=== PATIENT | male | born 1970 | race Caucasian/White ===

== ENCOUNTER 2018-10-24 17:25 | Emergency (ER) | payer OTHER ==
[2018-10-24] MEDS ORDERED: IBUPROFEN 400 MG TABLET (FP) PO ONE (18:08)
--- NOTE | 2018-10-24 18:08 | PDOC ---
Rapid Medical Evaluation Medical Evaluation: I have performed a brief in-person evaluation of this patient. The patient presents with a chief complaint of: R heel pain since yesterday; states he was pushing a garbage can and fell Pertinent physical exam findings: +TTP along R heel, no deformity, no obvious possible FB noted I have ordered the following: R foot xray, motrin The patient will proceed to the ED for further evaluation. 10/24/18 18:05
[2018-10-24] MEDS ORDERED: MAG HYDROX/AL HYDROX/SIMETH 30 ML UNIT-DOSE CUP PO ONE (18:10)
[2018-10-24] MEDS ORDERED: IBUPROFEN 600 MG TABLET (FP) PO ONE (18:11)
[2018-10-24] MEDS ORDERED: MAG HYDROX/AL HYDROX/SIMETH 30 ML UNIT-DOSE CUP ONE (18:29)
[2018-10-24 18:36] VITALS: BP 123/83; PULSE 81; TEMP 98.1; BMI 25.8
--- NOTE | 2018-10-24 19:02 | PDOC ---
History of Present Illness - General Chief Complaint: Pain Stated Complaint: RT FOOT PAIN Time Seen by Provider: 10/24/18 18:05 - History of Present Illness Initial Comments: 10/24/18 18:59 48-year-old male without comorbidities, he does get belly pain with anti- inflammatories, presents for evaluation of right heel pain times one day. No systemic symptoms. Past History - Past Medical History Allergies/Adverse Reactions: Allergies Allergy/AdvReac Type Severity Reaction Status Date / Time No Known Allergies Allergy Verified 10/24/18 18:14 Home Medications: Ambulatory Orders Ibuprofen 600 mg PO ONCE 10/24/18 COPD: No - Suicide/Smoking/Psychosocial Hx Smoking History: Never smoked Review of Systems - Review of Systems Constitutional: No: Fever Musculoskeletal: Yes: See HPI *Physical Exam - Vital Signs Last Vital Signs Temp Pulse Resp BP Pulse Ox 98.1 F 81 16 123/83 100 10/24/18 18:06 10/24/18 18:06 10/24/18 18:06 10/24/18 18:06 10/24/18 18:06 - Physical Exam Comments: 10/24/18 19:00 Right foot and ankle skin color and temperature are normal range of motion is full of the ankle without discomfort. No tenderness about the ankle reveal a lateral malleolus base of the fifth metatarsal or navicular. There is exquisite tenderness over the medial tubercle of the calcaneus and along the plantar aspect of the foot. No gross sensorimotor deficits. He is neurovascularly intact. Moderate Sedation - Procedure Monitoring Vital Signs: Procedure Monitoring Vital Signs Temperature 98.1 F 10/24/18 18:06 Pulse Rate 81 10/24/18 18:06 Respiratory Rate 16 10/24/18 18:06 Blood Pressure 123/83 10/24/18 18:06 O2 Sat by Pulse Oximetry (%) 100 10/24/18 18:06 ED Treatment Course - Medications Given in the ED: ED Medications Discontinued Medications Generic Name Dose Route Start Last Admin Trade Name Freq PRN Reason Stop Dose Admin Al Hydroxide/Mg Hydroxide 30 ml 10/24/18 18:10 10/24/18 18:29 Mylanta Oral Suspension - PO 10/24/18 18:11 30 ml ONCE ONE Administration Ibuprofen 800 mg 10/24/18 18:08 10/24/18 18:15 Motrin - PO 10/24/18 18:09 800 mg ONCE ONE Administration Medical Decision Making - Medical Decision Making 10/24/18 19:00 Recommending avoiding anti-inflammatories as this causes GI upset. Tylenol for pain as directed. Follow-up with orthopedics for plantar fasciitis. *DC/Admit/Observation/Transfer Diagnosis at time of Disposition: Plantar fasciitis of right foot - Discharge Dispostion Disposition: HOME Condition at time of disposition: Stable Decision to Admit order: No - Referrals Referrals: Clement Lincoln DO [Staff Physician] - - Patient Instructions Printed Discharge Instructions: Plantar Fasciitis, DI for Plantar Fasciitis Additional Instructions: Only Tylenol for pain. Avoid Advil Motrin ibuprofen and Aleve. Please take Tylenol as directed. Return to the emergency room for worsening symptoms and follow-up with orthopedic surgery in 1-2 days for further evaluation and treatment options. - Post Discharge Activity
== END 2018-10-24 19:05 | disposition home or self-care (01) ==
LOC: JERFT 17:25
DX: M72.2 Plantar fascial fibromatosis (principal)
CPT/HCPCS: 73630-TC-RT-FY; 99281-25

== ENCOUNTER 2019-02-11 10:47 | Emergency (ER) | payer OTHER ==
[2019-02-11 10:52] VITALS: BP 127/90; PULSE 72; TEMP 98.5; BMI 27.0
--- NOTE | 2019-02-11 11:08 | PDOC ---
History of Present Illness - General Chief Complaint: Injury Stated Complaint: INJURY Time Seen by Provider: 02/11/19 11:00 - History of Present Illness Initial Comments: 02/11/19 11:06 49-year-old male without comorbidities presents for 1 week of traumatic right- sided chest pain after a box fell on him and struck him in the chest 7 days ago. He states the box was about 17 pounds came from a height above his head he is unsure of the distance he points to the right side of his chest as the area of discomfort Past History - Past Medical History Allergies/Adverse Reactions: Allergies Allergy/AdvReac Type Severity Reaction Status Date / Time No Known Allergies Allergy Verified 02/11/19 10:52 Home Medications: Ambulatory Orders NK [No Known Home Medication] 02/11/19 COPD: No - Suicide/Smoking/Psychosocial Hx Smoking History: Never smoked Review of Systems - Review of Systems Cardiac (ROS): Yes: See HPI, Chest Pain *Physical Exam - Vital Signs Last Vital Signs Temp Pulse Resp BP Pulse Ox 98.5 F 72 18 127/90 99 02/11/19 10:49 02/11/19 10:49 02/11/19 10:49 02/11/19 10:49 02/11/19 10:49 - Physical Exam Comments: 02/11/19 11:07 HEAD: NC/AT EYES: Conjuntiva clear Ears: Canals and TM's normal NOSE: No d/c THROAT: Moist mucous membrances, oral pharanx clear, uvula midline NECK: Supple without adenopathy CARDIAC: S1 S2; right sided tenderness around ribs 34 and 5 at the costochondral and sternal chondral junction LUNGS: CTA Full and Equal breath sounds ABDOMEN: Soft NT ND MS: Full ROM in all joints without edema NEUROLOGIC: No gross sensory or motor deficits, NVID SKIN: Normal color and temperature no lesions or rashes ED Treatment Course - RADIOLOGY Radiology Studies Ordered: Category Date Time Status CHEST PA & LAT [RAD] Stat Radiology 02/11/19 11:04 Ordered Medical Decision Making - Medical Decision Making 02/11/19 11:15 No displaced sternal fracture seen on x-ray today. Discussed use of Tylenol and Motrin. Follow-up with primary care physician for further evaluation and treatment. Avoiding strenuous activity until cleared. *DC/Admit/Observation/Transfer Diagnosis at time of Disposition: Chest wall contusion - Discharge Dispostion Disposition: HOME Condition at time of disposition: Stable Decision to Admit order: No - Referrals Referrals: Jose Chilel MD [Primary Care Provider] - - Patient Instructions Additional Instructions: Tylenol and Motrin for pain. Follow-up with your primary care physician in 1-2 days without fail for further evaluation and treatment options and return to the emergency room should symptoms worsen. Daily until cleared by her primary care physician. - Post Discharge Activity
== END 2019-02-11 11:17 | disposition home or self-care (01) ==
LOC: JERFT 10:47
DX: S20.219A Contusion of unspecified front wall of thorax, initial encounter (principal); W20.8XXA Other cause of strike by thrown, projected or falling object, initial encounter; Y93.89 Activity, other specified; Y92.9 Unspecified place or not applicable; Y99.0 Civilian activity done for income or pay
CPT/HCPCS: 71046-TC-FY; 99281-25

== ENCOUNTER 2019-04-26 10:00 | Emergency (ER) | payer OTHER ==
[2019-04-26 10:15] VITALS: BP 143/88; PULSE 95; TEMP 99.5
[2019-04-26] MEDS ORDERED: IBUPROFEN 600 MG TABLET (FP) PO ONE ×2 (10:23→10:24)
--- NOTE | 2019-04-26 10:29 | PDOC ---
History of Present Illness - General Chief Complaint: Sore Throat Stated Complaint: FEVER/ SORE THROAT Time Seen by Provider: 04/26/19 10:22 History Source: Patient, Family Exam Limitations: No Limitations - History of Present Illness Initial Comments: 04/26/19 10:24 Here with complaints of fevers, chills, body aches, sore throat pain, runny nose. 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 Has been using Tylenol with minimal results Is this a multiple visit Asthma Patient?: No Timing/Duration: reports: getting worse Severity: reports: mild, moderate Associated Symptoms: reports: cough, earache, fever/chills, nasal congestion, sore throat Past History - Travel Traveled outside of the country in the last 30 days: No Close contact w/someone who was outside of country & ill: No - Past Medical History Allergies/Adverse Reactions: Allergies Allergy/AdvReac Type Severity Reaction Status Date / Time No Known Allergies Allergy Verified 04/26/19 10:12 Home Medications: Ambulatory Orders NK [No Known Home Medication] 02/11/19 COPD: No - Immunization History Immunization Up to Date: Yes - Suicide/Smoking/Psychosocial Hx Smoking History: Never smoked Information on smoking cessation initiated: No Hx Alcohol Use: No Drug/Substance Use Hx: No Review of Systems - Review of Systems Able to Perform ROS?: Yes Is the patient limited Uzbek proficient: Yes Constitutional: Yes: Symptoms Reported, See HPI, Fever, Malaise HEENTM: Yes: Symptoms Reported, See HPI, Nose Congestion, Throat Pain Respiratory: Yes: Symptoms reported, See HPI, Cough : No: Symptoms Reported Musculoskeletal: Yes: Symptoms Reported Integumentary: Yes: Symptoms Reported, See HPI Neurological: Yes: Symptoms reported All Other Systems: Reviewed and Negative *Physical Exam - Vital Signs Last Vital Signs Temp Pulse Resp BP Pulse Ox 99.5 F 95 H 16 143/88 99 04/26/19 10:13 04/26/19 10:13 04/26/19 10:13 04/26/19 10:13 04/26/19 10:13 - Physical Exam Comments: 04/26/19 10:27 GENERAL: [ The pateint is awake, alert, and appropriately interactive.] EYES: [The pupils are equal, round, and reactive to light, with clear, conjunctiva.but glassy] NOSE: [The nose with clear drainage EARS: [The ear canals and tympanic membranes are congested but landmarks easily visualed ] THROAT: [The oropharynx is clear with erythema, no exudates. The mucous membranes are moist.] NECK: [The neck is supple with mildly tender adenopathy, no menigemous] CHEST: [The lungs are coarse but clear without crackles, or wheezes.] HEART: [Heart is regular rhythm, with normal S1 and S2, no murmurs.] ABDOMEN: [The abdomen is soft and nontender with normal bowel sounds. There is no organomegaly and no mass. There is no guarding or rebound.] EXTREMITIES: [Extremities are normal.] NEURO: [Behavior is normal for age.cranky but easily, Tone is normal.] SKIN: [Skin is unremarkable without rash or swelling. There is no bruising, and there are no other signs of injury.] General Appearance: Yes: Nourished, Appropriately Dressed, Apparent Distress HEENT: positive: LONG, TMs Normal, Pharyngeal Erythema, Nasal Congestion, Rhinorrhea. negative: Tonsillar Exudate Neck: positive: Tender, Supple, Lymphadenopathy (R), Lymphadenopathy (L) Respiratory/Chest: positive: Lungs Clear, Normal Breath Sounds Gastrointestinal/Abdominal: negative: Tender Progress Note - Progress Note Progress Note: influenza test negative, we'll treat conservatively for URI symptoms and have follow-up with PMD as needed. *DC/Admit/Observation/Transfer Diagnosis at time of Disposition: Upper respiratory infection, viral - Discharge Dispostion Disposition: HOME Condition at time of disposition: Stable Decision to Admit order: No - Referrals Referrals: Jose Chilel MD [Primary Care Provider] - - Patient Instructions Printed Discharge Instructions: DI for Viral Upper Respiratory Infection-Child Additional Instructions: rest, Drinkl lots of fluids. - Post Discharge Activity Forms/Work/School Notes: Back to Work
== END 2019-04-26 11:41 | disposition home or self-care (01) ==
LOC: JERFT 10:00
DX: J06.9 Acute upper respiratory infection, unspecified (principal); B97.89 Other viral agents as the cause of diseases classified elsewhere
CPT/HCPCS: 87804; 99281-25

== ENCOUNTER 2023-09-17 09:57 | Emergency (ER) | payer OTHER ==
[2023-09-17 10:09] VITALS: BP 121/79; PULSE 82; RESP 16; TEMP 98.4; BMI 26.3
[2023-09-17] MEDS ORDERED: ONDANSETRON 4 MG/2 ML VIAL ONE (10:30)
[2023-09-17] MEDS: SODIUM CHLORIDE 0.9% 500 ML INFUS.BAG IV ONE (10:50)
[2023-09-17] MEDS: ONDANSETRON 4 MG/2 ML VIAL IVPUSH ONE (10:50)
[2023-09-17 11:11] LABS: HEMATOCRIT 42.8 % (35.4-49); HEMOGLOBIN 14.5 GM/dL (11.7-16.9); MCH 30.5 pg (25.7-33.7); MCHC 33.9 g/dl (32.0-35.9); MEAN PLT VOLUME 9.1 fl (7.5-11.1); PLATELET COUNT 178 10^3/uL (134-434); RBC 4.76 M/mm3 (4.00-5.60); RDW 12.8 % (11.9-15.9); WHITE BLOOD COUNT 13.1 K/mm3 (4.0-10.0)
[2023-09-17 11:30] LABS: POTASSIUM 4.6 mmol/L (3.5-5.1)
[2023-09-17 11:32] LABS: ALBUMIN 4.4 g/dl (3.4-5.0); BLOOD UREA NITROGEN 35.8 mg/dL (7-18); CALCIUM 9.2 mg/dL (8.5-10.1)
[2023-09-17 11:35] LABS: CREATININE 1.2 mg/dL (0.55-1.3)
[2023-09-17 11:37] LABS: BILIRUBIN,TOTAL 1.3 mg/dL (0.2-1); TOT PROT 7.8 g/dl (6.4-8.2)
[2023-09-17 11:39] LABS: ANISOCYTOSIS 1+; MACROCYTOSIS 0
== END 2023-09-17 12:20 | disposition home or self-care (01) ==
LOC: JER 09:57
PROC: 3E033NZ Introduction of Analgesics, Hypnotics, Sedatives into Peripheral Vein, Percutaneous Approach (ICD-10-PCS; principal; 2023-09-17)
DX: R11.10 Vomiting, unspecified (principal); Z20.822 Contact with and (suspected) exposure to COVID-19
CPT/HCPCS: 0241U-QW; 36415; 80053; 82962; 83690; 85025; 96374; 99284-25

== ENCOUNTER 2023-11-12 16:28 | Emergency (ER) | payer OTHER ==
[2023-11-12 16:41] VITALS: BP 135/75; PULSE 67; RESP 18; TEMP 98.3; BMI 23.6
== END 2023-11-12 18:25 | disposition home or self-care (01) ==
LOC: JER 16:28 → JERFT 16:28
DX: S93.401A Sprain of unspecified ligament of right ankle, initial encounter (principal); W18.00XA Striking against unspecified object with subsequent fall, initial encounter; Y93.89 Activity, other specified; Y92.009 Unspecified place in unspecified non-institutional (private) residence as the place of occurrence of the external cause
CPT/HCPCS: 73610-TC-RT-FY; 73630-TC-RT-FY; 99283-25

== ENCOUNTER 2024-01-30 10:35 | Emergency (ER) | payer OTHER, BC ==
[2024-01-30 10:39] VITALS: BP 129/82; PULSE 65; RESP 18; TEMP 98.5; BMI 24.3
[2024-01-30] MEDS ORDERED: IBUPROFEN 400 MG TABLET (FP) PO ONE (11:39)
[2024-01-30] MEDS ORDERED: ACETAMINOPHEN 325 MG TABLET (FP) ONE (11:39)
[2024-01-30] MEDS ORDERED: LIDOCAINE 4% PATCH TP ONE (11:39)
[2024-01-30] MEDS: LIDOCAINE 5% TOPICAL PATCH TP ONE (11:43)
[2024-01-30] MEDS: IBUPROFEN 400 MG TABLET (FP) PO ONE (11:44)
[2024-01-30] MEDS: ACETAMINOPHEN 325 MG TABLET (FP) PO ONE (11:45)
[2024-01-30] MEDS ORDERED: LIDOCAINE PATCH REMOVAL MC SCH (22:00)
== END 2024-01-30 13:38 | disposition home or self-care (01) ==
LOC: JERFT 10:35
DX: M54.50 Low back pain, unspecified (principal); M25.521 Pain in right elbow; V43.52XA Car driver injured in collision with other type car in traffic accident, initial encounter; Y92.410 Unspecified street and highway as the place of occurrence of the external cause
CPT/HCPCS: 73070-TC-RT-FY; 99283-25